=== PATIENT | female | born 1990 | race American Indian/Alaskan Native ===

== ENCOUNTER 2017-09-04 09:21 | Emergency (ER) | payer MEDICAID, OTHER ==
[2017-09-04 09:33] VITALS: TEMP 98.4
[2017-09-04 10:25] LABS: SQUAMOUS EPITHIAL 18 /hpf (0-5); URINE BACTERIA OCC (<OCC); URINE BILIRUBIN NEGATIVE (NEGATIVE); URINE BLOOD 2+ (NEGATIVE); URINE CLARITY Hazy (Clear); URINE COLOR Yellow (YELLOW); URINE GLUCOSE (UA) NORMAL (Normal); URINE LEUKOCYTE ESTERASE 3+ Leu/uL (Negative); URINE NITRATE NEGATIVE (NEGATIVE); URINE PROTEIN 1+ mg/dL (NEGATIVE); URINE UROBILINOGEN NORMAL mg/dL (0.2-1.0)
--- NOTE | 2017-09-04 10:26 | C.PDOC ---
History Of Present Illness 27-year-old female, presents to the emergency department with complaints of vaginal discharge and itching for the past two weeks. Patient states her at home test was positive two weeks ago also. LMP was in the beginning of 06/29. She denies any pain, dysuria, fever or exposure to STD. No other complaints at this time. Time Seen by Provider: 09/04/17 09:44 Chief Complaint (Nursing): Female Genitourinary History Per: Patient History/Exam Limitations: no limitations Past Medical History Reviewed: Historical Data, Nursing Documentation, Vital Signs Vital Signs: Last Vital Signs Temp 98.4 F 09/04/17 09:32 Pulse 70 09/04/17 10:57 Resp 16 09/04/17 10:57 BP 122/77 09/04/17 10:57 Pulse Ox 98 09/04/17 10:57 Family History: States: No Known Family Hx - Social History Hx Tobacco Use: No Hx Alcohol Use: No Hx Substance Use: No - Immunization History Hx Tetanus Toxoid Vaccination: No Hx Influenza Vaccination: No Hx Pneumococcal Vaccination: No Review Of Systems Except As Marked, All Systems Reviewed And Found Negative. Constitutional: Negative for: Fever, Chills Respiratory: Negative for: Shortness of Breath Gastrointestinal: Negative for: Vomiting Genitourinary: Positive for: Vaginal Discharge (itching). Negative for: Dysuria , Frequency, Vaginal Bleeding Musculoskeletal: Negative for: Back Pain Physical Exam - Physical Exam Appears: Non-toxic, No Acute Distress Skin: Warm, Dry, No Rash Eye(s): bilateral: Normal Inspection Nose: Normal Oral Mucosa: Moist Lips: Normal Appearing Neck: Normal ROM Cardiovascular: Rhythm Regular, No Murmur Respiratory: Normal Breath Sounds, No Accessory Muscle Use Gastrointestinal/Abdominal: Soft, No Tenderness Extremity: Normal ROM Neurological/Psych: Oriented x3, Normal Speech ED Course And Treatment O2 Sat by Pulse Oximetry: 100 (on RA) Pulse Ox Interpretation: Normal Disposition - Disposition Referrals: [facility] [Outside] Disposition: HOME/ ROUTINE Disposition Time: 10:42 Condition: GOOD Additional Instructions: Please follow up with an OBGYN doctor this week. Your gc/chlamydia results will take a day or two to come back and you should follow up with your doctor for the results. Return to the ER for any worsening symptoms, abdominal pain, fever or for any other concerns. Prescriptions: Miconazole Nitrate [Monistat 3] 1 each VG DAILY #1 kit Nitrofurantoin Macrocrystals [Macrobid] 100 mg PO BID #14 cap Instructions: Vulvovaginal Candidiasis (ED) Forms: General Discharge Instructions, Work/School/Gym Excuse, [facility] (Georgian) - Clinical Impression Clinical Impression: Vaginal discharge - Scribe Statement The provider has reviewed the documentation as recorded by the Scribe (Yue Mac) All medical record entries made by the Scribe were at my direction and personally dictated by me. I have reviewed the chart and agree that the record accurately reflects my personal performance of the history, physical exam, medical decision making, and the department course for this patient. I have also personally directed, reviewed, and agree with the discharge instructions and disposition.
[2017-09-04 10:58] VITALS: BP 122/77; PULSE 70; RESP 16
[2017-09-07 15:26] VITALS: O2SAT 100
== END 2017-09-04 10:57 | disposition home or self-care (01) ==
LOC: C.ER 09:21
DX: N89.8 Other specified noninflammatory disorders of vagina (principal)

== ENCOUNTER 2018-08-18 09:10 | Emergency (ER) | payer MEDICAID, OTHER ==
[2018-08-18 09:24] VITALS: BP 105/68; PULSE 79; RESP 18; TEMP 98.3; O2SAT 98
--- NOTE | 2018-08-18 09:47 | C.PDOC ---
History Of Present Illness 28 yo female, , lmp last mo, presetns for eval. states she took home preg test and told she was . states "she needs paperwork to confirm for insurance". no abd pain no vb no other complaint. declines any w/u and us, states she will obtain outpt w/u, specficially only requests paperwork to confirm pregnany. Time Seen by Provider: 08/18/18 09:33 Chief Complaint (Nursing): Medical Clearance Past Medical History Reviewed: Historical Data, Nursing Documentation, Vital Signs Vital Signs: Last Vital Signs Temp 98.3 F 08/18/18 09:19 Pulse 79 08/18/18 09:19 Resp 18 08/18/18 09:19 BP 105/68 08/18/18 09:19 Pulse Ox 98 08/18/18 09:19 Family History: States: Unknown Family Hx - Social History Hx Tobacco Use: No Hx Alcohol Use: Yes Hx Substance Use: No - Immunization History Hx Tetanus Toxoid Vaccination: No Hx Influenza Vaccination: No Hx Pneumococcal Vaccination: No Review Of Systems Except As Marked, All Systems Reviewed And Found Negative. Physical Exam - Physical Exam Appears: Well, No Acute Distress, Other (playing cell phone games in nad) Skin: Normal Color, Warm, Dry Eye(s): bilateral: Normal Inspection, PERRL, EOMI Nose: Normal Throat: Normal Neck: Normal Cardiovascular: Rhythm Regular Respiratory: Normal Breath Sounds Gastrointestinal/Abdominal: Normal Exam, Soft, No Tenderness, No Guarding, No Rebound, Other (gravid) Back: Normal Inspection Extremity: Normal ROM ED Course And Treatment O2 Sat by Pulse Oximetry: 98 Medical Decision Making Medical Decision Making: pt declined ED ultrasound beta. poc (+). no abd pain no medical complaint. Disposition - Disposition Referrals: Rafi Ruvalcaba DO [Staff Provider] - Disposition: HOME/ ROUTINE Disposition Time: 09:46 Condition: STABLE Additional Instructions: follow up with obgyn. return to any er with worsening symptoms or concerns. Instructions: Care, - The First Month, - The Second Month - Clinical Impression Clinical Impression:
== END 2018-08-18 10:05 | disposition home or self-care (01) ==
LOC: C.ER 09:10
DX: Z34.90 Encounter for supervision of normal pregnancy, unspecified, unspecified trimester (principal)